=== PATIENT | female | born 1990 | race Caucasian/White ===

== ENCOUNTER 2016-09-29 15:43 | Emergency (ER) | payer MEDICAID ==
[2016-09-29 15:57] VITALS: BP 105/64
--- NOTE | 2016-09-29 16:13 | ER Document Report ---
ED Medical Screen (RME) - General Time seen by provider: 16:11 Mode of Arrival: Ambulatory Information source: Patient TRAVEL OUTSIDE OF THE [place] IN LAST 30 DAYS: No <MARIALUISA COOMBS - Last Filed: 09/29/16 16:11> <KRISTAL GOMES - Last Filed: 09/29/16 19:26> - General Chief Complaint: Abdominal Pain Stated Complaint: ABDOMINAL PAIN Notes: 26-year-old female presents to ED for abdominal pain for 2 weeks with some nausea. Last menstrual period states she has an IUD. States 3 home came back positive, states has had 25 versus I have greeted and performed a rapid initial assessment of this patient. A comprehensive ED assessment and evaluation of the patient, analysis of test results and completion of medical decision making process will be conducted by an additional ED providers. (MARIALUISA COOMBS) - Related Data Allergies/Adverse Reactions: No Known Allergies Allergy (Verified 09/29/16 16:13) Past Medical History Psychiatric Medical History: Reports: Hx Depression - Immunizations Hx Diphtheria, Pertussis, Tetanus Vaccination: Yes - unk <MARIALUISA COOMBS - Last Filed: 09/29/16 16:11> Course - Laboratory Result Diagrams: 09/29/16 16:25 09/29/16 16:25 <KRISTAL GOMES - Last Filed: 09/29/16 19:26> - Vital Signs Vital signs: Temp Pulse Resp BP Pulse Ox 98.2 F 101 H 16 105/64 96 09/29/16 15:57 09/29/16 15:57 09/29/16 15:57 09/29/16 15:57 09/29/16 15:57 (MARIALUISA COOMBS) (KRISTAL GOMES) - Laboratory Laboratory results interpreted by me: 09/29/16 09/29/16 09/29/16 16:25 16:25 16:25 MCH 26.9 L ALT 59 H Ur Leukocyte Esterase LARGE H (KRISTAL GOMES) Doctor's Discharge <MARIALUISA COOMBS - Last Filed: 09/29/16 16:11> <KRISTAL GOMES - Last Filed: 09/29/16 19:26> - Discharge Clinical Impression: Abdominal pain Qualifiers: Abdominal location: right lower quadrant Qualified Code(s): R10.31 - Right lower quadrant pain Condition: Good Disposition: HOME, SELF-CARE Instructions: Abdominal Pain ([facility]) Additional Instructions: Take medication as prescribed. Return to ER symptoms worsen. Prescriptions: Ondansetron [Zofran Odt 4 mg Tablet] 4 mg PO Q4HP PRN #30 tab.rapdis PRN Reason: Dicyclomine HCl [Bentyl 20 mg Tablet] 20 mg PO QID #20 tablet Forms: Return to Work
[2016-09-29 16:41] LABS: ABSOLUTE EOSINOPHILS # (AUTO) 0.2 10^3/uL (0.0-0.6); ABSOLUTE LYMPHOCYTES (AUTO) 1.3 10^3/uL (0.5-4.7); ABSOLUTE MONOCYTES (AUTO) 0.7 10^3/uL (0.1-1.4); ABSOLUTE NEUT (AUTO) 7.3 10^3/uL (1.7-8.2); BASOPHILS % (AUTO) 0.2 % (0-2); EOSINOPHILS % (AUTO) 1.7 % (0-6); HEMATOCRIT 40.6 % (36.0-47.0); HEMOGLOBIN 13.4 g/dL (12.0-15.5); HGB HCT DIFFERENCE -0.4; LYMPHOCYTES % (AUTO) 13.5 % (13-45); MEAN CORPUSCULAR HEMOGLOBIN 26.9 pg (27.0-33.4); MEAN CORPUSCULAR VOLUME 82 fl (80-97); MONOCYTES % (AUTO) 7.4 % (3-13); RED BLOOD COUNT 4.98 10^6/uL (3.72-5.28); RED CELL DISTRIBUTION WIDTH 12.9 % (11.5-14.0); SEGMENTED NEUTROPHILS % (AUTO) 77.2 % (42-78); WHITE BLOOD COUNT 9.4 10^3/uL (4.0-10.5)
[2016-09-29 17:00] LABS: ALANINE AMINOTRANSFERASE 59 U/L (9-52); ALBUMIN 4.3 g/dL (3.5-5.0); ALKALINE PHOSPHATASE 86 U/L (38-126); ANION GAP 12 (5-19); ASPARTATE AMINO TRANSFERASE 31 U/L (14-36); BILIRUBIN,TOTAL 0.8 mg/dL (0.2-1.3); BLOOD UREA NITROGEN 19 mg/dL (7-20); CARBON DIOXIDE 26 mmol/L (22-30); CHLORIDE 104 mmol/L (98-107); CREATININE RESULT 0.86 mg/dL (0.52-1.25); GLUCOSE 89 mg/dL (75-110); POTASSIUM 4.2 mmol/L (3.6-5.0); SODIUM 141.7 mmol/L (137-145); TOTAL PROTEIN 7.6 g/dL (6.3-8.2)
[2016-09-29 17:16] LABS: APPEARANCE,URINE CLOUDY; BILIRUBIN,URINE NEGATIVE (NEGATIVE); GLUCOSE, URINE NEGATIVE (NEGATIVE); KETONES,URINE NEGATIVE (NEGATIVE); LEUKOCYTE ESTERASE,URINE LARGE (NEGATIVE); NITRITE,URINE NEGATIVE (NEGATIVE); PROTEIN,URINE NEGATIVE (NEGATIVE); URINE SPECIFIC GRAVITY 1.012; UROBILINOGEN,URINE NEGATIVE mg/dL (<2.0)
--- NOTE | 2016-09-29 23:42 | ER Document Report ---
ED General - General Chief Complaint: Abdominal Pain Stated Complaint: ABDOMINAL PAIN Mode of Arrival: Ambulatory TRAVEL OUTSIDE OF THE [place] IN LAST 30 DAYS: No - HPI Patient complains to provider of: abdominal pain left lower quadrant Notes: Patient coming in for evaluation of abdominal pain left lower quadrant ongoing for the last 4-5 days. Patient is concerned she may be . Patient states she took Prevacid test on the positive. Patient has a history of an IUD placement approximately one year ago patient states this is a Mirena. Patient states that she has checked her memory and is still has drains in place. Patient denies nausea vomiting fevers chills diarrhea recent travel. Patient denies any recent trauma. - Related Data Allergies/Adverse Reactions: No Known Allergies Allergy (Verified 09/29/16 16:13) Past Medical History - General Information source: Patient - Social History Smoking Status: Current Every Day Smoker Chew tobacco use (# tins/day): No Frequency of alcohol use: None Drug Abuse: None Family History: Reviewed & Not Pertinent Patient has suicidal ideation: No Patient has homicidal ideation: No Renal/ Medical History: Denies: Hx Peritoneal Dialysis Psychiatric Medical History: Reports: Hx Depression - Immunizations Hx Diphtheria, Pertussis, Tetanus Vaccination: Yes - unk Review of Systems - Review of Systems Constitutional: No symptoms reported EENT: No symptoms reported Cardiovascular: No symptoms reported Respiratory: No symptoms reported Gastrointestinal: Abdominal pain - Left lower quadrant Genitourinary: No symptoms reported Female Genitourinary: No symptoms reported Musculoskeletal: No symptoms reported Skin: No symptoms reported Hematologic/Lymphatic: No symptoms reported Neurological/Psychological: No symptoms reported Physical Exam - Vital signs Vitals: Temp Pulse Resp BP Pulse Ox 98.2 F 101 H 16 105/64 96 09/29/16 15:57 09/29/16 15:57 09/29/16 15:57 09/29/16 15:57 09/29/16 15:57 Interpretation: Normal - General General appearance: Appears well, Alert - HEENT Head: Normocephalic, Atraumatic Eyes: Normal Pupils: PERRL - Respiratory Respiratory status: No respiratory distress Chest status: Nontender Breath sounds: Normal Chest palpation: Normal - Cardiovascular Rhythm: Regular Heart sounds: Normal auscultation Murmur: No - Abdominal Inspection: Normal Distension: No distension Bowel sounds: Normal Tenderness: Nontender. No: Tender, McBurney's point, Gayle's sign, Guarding, Rebound Organomegaly: No organomegaly - Back Back: Normal, Nontender - Extremities General upper extremity: Normal inspection, Nontender, Normal color, Normal ROM , Normal temperature General lower extremity: Normal inspection, Nontender, Normal color, Normal ROM , Normal temperature, Normal weight bearing. No: Magan's sign - Neurological Neuro grossly intact: Yes Cognition: Normal Orientation: AAOx4 Chloe Coma Scale Eye Opening: Spontaneous Chloe Coma Scale Verbal: Oriented Silver Plume Coma Scale Motor: Obeys Commands Chloe Coma Scale Total: 15 Speech: Normal Motor strength normal: LUE, RUE, LLE, RLE Sensory: Normal - Psychological Associated symptoms: Normal affect, Normal mood - Skin Skin Temperature: Warm Skin Moisture: Dry Skin Color: Normal Course - Re-evaluation Re-evalutation: 09/29/16 23:41 Lab work shows no signs of critical etiology patient is not . No signs of infection. Patient states she has a history of ectopic in the past and had a surgery for on the left side. Possible etiology could be scar tissue. 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 - Vital Signs Vital signs: Temp Pulse Resp BP Pulse Ox 98.2 F 101 H 16 105/64 96 09/29/16 15:57 09/29/16 15:57 09/29/16 15:57 09/29/16 15:57 09/29/16 15:57 - Laboratory Result Diagrams: 09/29/16 16:25 09/29/16 16:25 Laboratory results interpreted by me: 09/29/16 09/29/16 09/29/16 16:25 16:25 16:25 MCH 26.9 L ALT 59 H Ur Leukocyte Esterase LARGE H Discharge - Discharge Clinical Impression: Abdominal pain Qualifiers: Abdominal location: right lower quadrant Qualified Code(s): R10.31 - Right lower quadrant pain Condition: Good Disposition: HOME, SELF-CARE Instructions: Abdominal Pain ([facility]) Additional Instructions: Take medication as prescribed. Return to ER symptoms worsen. Prescriptions: Ondansetron [Zofran Odt 4 mg Tablet] 4 mg PO Q4HP PRN #30 tab.rapdis PRN Reason: Dicyclomine HCl [Bentyl 20 mg Tablet] 20 mg PO QID #20 tablet Forms: Return to Work
== END 2016-09-29 19:31 | disposition home or self-care (01) ==
LOC: ER 15:43
DX: R10.31 Right lower quadrant pain (principal); R10.32 Left lower quadrant pain; F17.210 Nicotine dependence, cigarettes, uncomplicated
CPT/HCPCS: 36415; 80053; 81001; 84703; 85025; 99284

== ENCOUNTER 2017-04-24 06:24 | Emergency (ER) | payer OTHER ==
--- NOTE | 2017-04-24 07:34 | ER Document Report ---
ED General - General Chief Complaint: Redness of Eye Stated Complaint: POSSIBE EYE IRRITATION Time Seen by Provider: 04/24/17 06:45 Mode of Arrival: Ambulatory Information source: Patient Notes: 27-year-old female presents with complaints of red eye itchy with thick discharge. Patient notes her left eye started yesterday right eye started this morning. Patient does not wear contacts. She rarely uses makeup. Patient denies any known sick contacts TRAVEL OUTSIDE OF THE [place] IN LAST 30 DAYS: No - HPI Onset: Yesterday Onset/Duration: Sudden Quality of pain: No pain Severity: Mild Pain Level: Denies Associated symptoms: None Exacerbated by: Denies Relieved by: Denies Similar symptoms previously: No Recently seen / treated by doctor: No - Related Data Allergies/Adverse Reactions: No Known Allergies Allergy (Verified 04/24/17 06:27) Past Medical History - Social History Smoking Status: Current Every Day Smoker Cigarette use (# per day): Yes Chew tobacco use (# tins/day): No Smoking Education Provided: No Frequency of alcohol use: None Drug Abuse: None Family History: Reviewed & Not Pertinent Renal/ Medical History: Denies: Hx Peritoneal Dialysis Psychiatric Medical History: Reports: Hx Depression - Immunizations Hx Diphtheria, Pertussis, Tetanus Vaccination: Yes - unk Review of Systems - Review of Systems Notes: REVIEW OF SYSTEMS: CONSTITUTIONAL : Denies fever, chills, or sweats. Denies recent illness. EENT: Admits to itching eyes CARDIOVASCULAR: Denies chest pain. Denies palpitations or racing or irregular heart beat. Denies ankle edema. RESPIRATORY: Denies cough, cold, or chest congestion. Denies shortness of breath, difficulty breathing, or wheezing. GASTROINTESTINAL: Denies abdominal pain or distention. Denies nausea, vomiting , or diarrhea. Denies blood in vomitus, stools, or per rectum. Denies black, tarry stools. Denies constipation. GENITOURINARY: Denies difficulty urinating, painful urination, burning, frequency, blood in urine, or discharge. FEMALE GENITOURINARY: Denies vaginal bleeding, heavy or abnormal periods, irregular periods. Denies vaginal discharge or odor. MUSCULOSKELETAL: Denies back or neck pain or stiffness. Denies joint pain or swelling. SKIN: Denies rash, lesions or sores. HEMATOLOGIC : Denies easy bruising or bleeding. LYMPHATIC: Denies swollen, enlarged glands. NEUROLOGICAL: Denies confusion or altered mental status. Denies passing out or loss of consciousness. Denies dizziness or lightheadedness. Denies headache. Denies weakness or paralysis or loss of use of either side. Denies problems with gait or speech. Denies sensory loss, numbness, or tingling. Denies seizures. PSYCHIATRIC: Denies anxiety or stress. Denies depression, suicidal ideation, or homicidal ideation. ALL OTHER SYSTEMS REVIEWED AND NEGATIVE. PHYSICAL EXAMINATION: GENERAL: Well-appearing, well-nourished and in no acute distress. HEAD: Atraumatic, normocephalic. EYES: Pupils are equal round reactive to light extraocular movements are intact left conjunctiva is injected there is no drainage noted right conjunctiva appears normal at this time ENT: Nares patent, oropharynx clear without exudates. Moist mucous membranes. NECK: Normal range of motion, supple without lymphadenopathy LUNGS: Breath sounds clear to auscultation bilaterally and equal. No wheezes rales or rhonchi. HEART: Regular rate and rhythm without murmurs ABDOMEN: Soft, nontender, nondistended abdomen. No guarding, no rebound. No masses appreciated. Female : deferred Musculoskeletal: Normal range of motion, no pitting or edema. No cyanosis. NEUROLOGICAL: Cranial nerves grossly intact. Normal speech, normal gait. Normal sensory, motor exams PSYCH: Normal mood, normal affect. SKIN: Warm, Dry, normal turgor, no rashes or lesions noted. Dictation was performed using [employer] voice recognition software Physical Exam - Vital signs Vitals: Temp Pulse Resp BP Pulse Ox 98.3 F 80 16 104/62 99 04/24/17 06:27 04/24/17 06:27 04/24/17 06:27 04/24/17 06:27 04/24/17 06:27 Course - Re-evaluation Re-evalutation: 04/24/17 07:32 Patient will be started on Polytrim for her conjunctivitis, I discussed allergic versus viral versus bacterial conjunctivitis. After performing a Medical Screening Examination, I estimate there is LOW risk for a RETAINED CORNEAL or LID FOREIGN BODY, DEEP SPACE INFECTION (e.g., ORBITAL CELLULITIS OR ABSCESS), ACUTE GLAUCOMA, PENETRATING GLOBE INJURY, RETINAL DETACHMENT, or MENINGITIS thus I consider the discharge disposition reasonable. I have reevaluated this patient multiple times and no significant life threatening changes are noted. Also, there is no evidence or peritonitis, sepsis , or toxicity. The patient and I have discussed the diagnosis and risks, and we agree with discharging home with outpatient follow-up with the understanding that symptoms and presentations can change. We also discussed returning to the Emergency Department immediately if new or worsening symptoms occur. We have discussed the symptoms which are most concerning (e.g., changing or worsening pain, vision changes, neck stiffness or fever) that necessitate immediate return. - Vital Signs Vital signs: Temp Pulse Resp BP Pulse Ox 98.3 F 80 16 104/62 99 04/24/17 06:27 04/24/17 06:27 04/24/17 06:27 04/24/17 06:27 04/24/17 06:27 Discharge - Discharge Clinical Impression: Conjunctivitis Qualifiers: Conjunctivitis type: acute Acute conjunctivitis type: bacterial Laterality: bilateral Qualified Code(s): H10.33 - Unspecified acute conjunctivitis, bilateral Condition: Stable Disposition: HOME, SELF-CARE Instructions: Conjunctivitis ([facility]) Prescriptions: Polymyxin B Sulf/Trimethoprim [Polytrim Eye Drops] 2 drop OU Q6 10 Days drops Referrals: JAMES ESQUIVEL [Primary Care Provider] - Follow up as needed TRE HOLMAN DO [ACTIVE STAFF] - Follow up in 3-5 days
[2017-04-24 08:12] VITALS: BP 93/66
== END 2017-04-24 08:12 | disposition home or self-care (01) ==
LOC: ER 06:24
DX: H10.33 Unspecified acute conjunctivitis, bilateral (principal); F17.200 Nicotine dependence, unspecified, uncomplicated
CPT/HCPCS: 99282

== ENCOUNTER 2017-06-24 06:24 | Emergency (ER) | payer OTHER ==
[2017-06-24 07:17] LABS: ABSOLUTE EOSINOPHILS # (AUTO) 0.3 10^3/uL (0.0-0.6); ABSOLUTE LYMPHOCYTES (AUTO) 1.7 10^3/uL (0.5-4.7); ABSOLUTE MONOCYTES (AUTO) 0.8 10^3/uL (0.1-1.4); ABSOLUTE NEUT (AUTO) 5.6 10^3/uL (1.7-8.2); BASOPHILS % (AUTO) 0.4 % (0-2); EOSINOPHILS % (AUTO) 3.7 % (0-6); HEMATOCRIT 41.3 % (36.0-47.0); HEMOGLOBIN 14.2 g/dL (12.0-15.5); HGB HCT DIFFERENCE 1.3; LYMPHOCYTES % (AUTO) 20.2 % (13-45); MEAN CORPUSCULAR HGB CONC 34.3 g/dL (32.0-36.0); MEAN CORPUSCULAR VOLUME 82 fl (80-97); MONOCYTES % (AUTO) 9.9 % (3-13); RED BLOOD COUNT 5.06 10^6/uL (3.72-5.28); RED CELL DISTRIBUTION WIDTH 12.7 % (11.5-14.0); SEGMENTED NEUTROPHILS % (AUTO) 65.8 % (42-78); WHITE BLOOD COUNT 8.5 10^3/uL (4.0-10.5)
[2017-06-24 07:35] LABS: ALANINE AMINOTRANSFERASE 41 U/L (9-52); ALBUMIN 4.8 g/dL (3.5-5.0); ALKALINE PHOSPHATASE 63 U/L (38-126); ANION GAP 14 (5-19); ASPARTATE AMINO TRANSFERASE 23 U/L (14-36); BILIRUBIN,DIRECT 0.4 mg/dL (0.0-0.4); BILIRUBIN,TOTAL 0.6 mg/dL (0.2-1.3); BLOOD UREA NITROGEN 18 mg/dL (7-20); CARBON DIOXIDE 27 mmol/L (22-30); CHLORIDE 105 mmol/L (98-107); CREATININE RESULT 0.92 mg/dL (0.52-1.25); GLUCOSE 97 mg/dL (75-110); SODIUM 145.6 mmol/L (137-145); TOTAL PROTEIN 7.4 g/dL (6.3-8.2)
--- NOTE | 2017-06-24 07:54 | ER Document Report ---
ED General - General Chief Complaint: Chest Pain Stated Complaint: CHEST PAIN Time Seen by Provider: 06/24/17 06:36 Mode of Arrival: Ambulatory Information source: Patient Notes: 27 yr old female presents with complaints of midsternal chest pain. Pt denies any fevers or chills, nausea or vomiting. pt notes that she has alot of stress in her life, has alot of sharp pain midsternal. pt admits to sob. TRAVEL OUTSIDE OF THE [place] IN LAST 30 DAYS: No - HPI Onset: Just prior to arrival Onset/Duration: Sudden Quality of pain: Sharp Severity: Mild Pain Level: Denies Associated symptoms: None Exacerbated by: Other Relieved by: Denies Similar symptoms previously: No Recently seen / treated by doctor: No - Related Data Allergies/Adverse Reactions: No Known Allergies Allergy (Verified 04/24/17 06:27) Past Medical History - Social History Smoking Status: Never Smoker Cigarette use (# per day): No Chew tobacco use (# tins/day): No Smoking Education Provided: No Family History: Reviewed & Not Pertinent Patient has suicidal ideation: No Patient has homicidal ideation: No Renal/ Medical History: Denies: Hx Peritoneal Dialysis Psychiatric Medical History: Reports: Hx Depression - Immunizations Hx Diphtheria, Pertussis, Tetanus Vaccination: Yes - unk Review of Systems - Review of Systems Notes: REVIEW OF SYSTEMS: CONSTITUTIONAL : Denies fever, chills, or sweats. Denies recent illness. EENT: Denies eye, ear, throat, or mouth pain or symptoms. Denies nasal or sinus congestion or discharge. Denies throat, tongue, or mouth swelling or difficulty swallowing. CARDIOVASCULAR: admits to chest pain RESPIRATORY: Denies cough, cold, or chest congestion. Denies shortness of breath, difficulty breathing, or wheezing. GASTROINTESTINAL: Denies abdominal pain or distention. Denies nausea, vomiting , or diarrhea. Denies blood in vomitus, stools, or per rectum. Denies black, tarry stools. Denies constipation. GENITOURINARY: Denies difficulty urinating, painful urination, burning, frequency, blood in urine, or discharge. FEMALE GENITOURINARY: Denies vaginal bleeding, heavy or abnormal periods, irregular periods. Denies vaginal discharge or odor. MUSCULOSKELETAL: Denies back or neck pain or stiffness. Denies joint pain or swelling. SKIN: Denies rash, lesions or sores. HEMATOLOGIC : Denies easy bruising or bleeding. LYMPHATIC: Denies swollen, enlarged glands. NEUROLOGICAL: Denies confusion or altered mental status. Denies passing out or loss of consciousness. Denies dizziness or lightheadedness. Denies headache. Denies weakness or paralysis or loss of use of either side. Denies problems with gait or speech. Denies sensory loss, numbness, or tingling. Denies seizures. PSYCHIATRIC: Denies anxiety or stress. Denies depression, suicidal ideation, or homicidal ideation. ALL OTHER SYSTEMS REVIEWED AND NEGATIVE. PHYSICAL EXAMINATION: GENERAL: Well-appearing, well-nourished and in no acute distress. HEAD: Atraumatic, normocephalic. EYES: Pupils equal round and reactive to light, extraocular movements intact, conjunctiva are normal. ENT: Nares patent, oropharynx clear without exudates. Moist mucous membranes. NECK: Normal range of motion, supple without lymphadenopathy LUNGS: Breath sounds clear to auscultation bilaterally and equal. No wheezes rales or rhonchi. HEART: Regular rate and rhythm without murmurs ABDOMEN: Soft, nontender, nondistended abdomen. No guarding, no rebound. No masses appreciated. Female : deferred Musculoskeletal: Normal range of motion, no pitting or edema. No cyanosis. NEUROLOGICAL: Cranial nerves grossly intact. Normal speech, normal gait. Normal sensory, motor exams PSYCH: Normal mood, normal affect. SKIN: Warm, Dry, normal turgor, no rashes or lesions noted. Dictation was performed using [employer] voice recognition software Physical Exam - Vital signs Vitals: Temp Pulse Resp BP Pulse Ox 97.2 F 89 24 H 108/70 99 06/24/17 06:28 06/24/17 06:28 06/24/17 06:28 06/24/17 06:28 06/24/17 06:28 Course - Re-evaluation Re-evalutation: 06/24/17 07:59 Patient believes she has a lot of stress and states she thinks this is stress related, I will treated with some Ativan Toradol, there is no signs of DVT pneumothorax or any cardiac event causing the chest pain 06/24/17 09:12 After performing a Medical Screening Examination, I estimate there is LOW risk for RUPTURED ESOPHAGUS, PNEUMOTHORAX, PULMONARY EMBOLISM, ACUTE CORONARY SYNDROME, OR THORACIC AORTIC DISSECTION, thus I consider the discharge disposition reasonable. I have reevaluated this patient multiple times and no significant life threatening changes are noted. The patient and I have discussed the diagnosis and risks, and we agree with discharging home with close follow-up. We also discussed returning to the Emergency Department immediately if new or worsening symptoms occur. We have discussed the symptoms which are most concerning (e.g., bloody sputum, worsening pain or shortness of breath) that necessitate immediate return. - Vital Signs Vital signs: Temp Pulse Resp BP Pulse Ox 97.2 F 89 24 H 108/70 99 06/24/17 06:28 06/24/17 06:28 06/24/17 06:28 06/24/17 06:28 06/24/17 06:28 - Laboratory Result Diagrams: 06/24/17 07:03 06/24/17 07:03 Laboratory results interpreted by me: 06/24/17 07:03 Sodium 145.6 H - Diagnostic Test Radiology reviewed: Image reviewed, Reports reviewed - EKG Interpretation by Me EKG shows normal: Sinus rhythm, Gibson, Intervals, QRS Complexes Discharge - Discharge Clinical Impression: Anxiety Chest pain Qualifiers: Chest pain type: unspecified Qualified Code(s): R07.9 - Chest pain, unspecified Condition: Stable Disposition: HOME, SELF-CARE Instructions: Chest Pain of Unclear Cause ([facility]) Prescriptions: Lorazepam [Ativan 1 mg Tablet] 1 mg PO Q4 PRN #10 tab PRN Reason:
--- NOTE | 2017-06-24 07:56 | RADIOLOGY REPORT (SQ) ---
EXAM DESCRIPTION: CHEST PA/LAT COMPLETED DATE/TIME: 06/24/2017 7:47 am REASON FOR STUDY: chest pain COMPARISON: None. EXAM PARAMETERS: NUMBER OF VIEWS: two views TECHNIQUE: Digital Frontal and Lateral radiographic views of the chest acquired. RADIATION DOSE: NA LIMITATIONS: none FINDINGS: LUNGS AND PLEURA: No consolidation, pneumothorax or pleural effusion. MEDIASTINUM AND HILAR STRUCTURES: No masses or contour abnormalities. HEART AND VASCULAR STRUCTURES: Heart normal size. No evidence for failure. BONES: No acute findings. HARDWARE: None in the chest. IMPRESSION: No acute radiographic finding in the chest. TECHNICAL DOCUMENTATION: JOB ID: [id number] 2010 [employer]- All Rights Reserved
[2017-06-24] MEDS ORDERED: LORAZEPAM 1 MG TABLET PO ONE (07:59)
[2017-06-24] MEDS ORDERED: KETOROLAC TROMETHAMINE 60 MG/2 ML SDV IM ONE (07:59)
[2017-06-24 09:29] VITALS: BP 93/72
--- NOTE | 2017-06-24 20:18 | EKG REPORT ---
SEVERITY:- BORDERLINE ECG - SINUS RHYTHM BORDERLINE T ABNORMALITIES, DIFFUSE LEADS : Confirmed by: Carmella Jeffries MD 24-Jun-2017 20:16:55
== END 2017-06-24 09:28 | disposition home or self-care (01) ==
LOC: ER 06:24
DX: F41.9 Anxiety disorder, unspecified (principal); R07.9 Chest pain, unspecified
CPT/HCPCS: 93005; 99285; 96372; 36415; 85025; 80053; 85379; 71020; 93010; J1885

== ENCOUNTER 2018-01-24 17:31 | Emergency (ER) | payer OTHER ==
[2018-01-24 17:37] VITALS: BP 110/60
--- NOTE | 2018-01-24 19:06 | ER Document Report ---
ED Medical Screen (RME) - General Chief Complaint: Abdominal Pain Stated Complaint: ABDOMINAL PAIN Time Seen by Provider: 01/24/18 18:56 Notes: RAPID MEDICAL EVALUATION DISCLOSURE I have seen this patient as part of a Rapid Medical Evaluation and, if applicable, placed any initially appropriate orders. The patient will be seen and fully evaluated, including a full history and physical exam, by a provider ( in Main ED or Fast Track) when a room becomes available. 27-year-old female PMH "gallbladder sludge" here with complaints over the past 2 weeks of right upper quadrant abdominal pain. She first noticed it 2 weeks ago after she ate some Japanese fries and the pain ensued approximately 10 minutes later. Since then the pain has progressively worsened and now she is having the symptoms even with nongreasy foods such as salads. EXAM Mild RUQ TTP No peritoneal signs TRAVEL OUTSIDE OF THE [place] IN LAST 30 DAYS: No - Related Data Allergies/Adverse Reactions: No Known Allergies Allergy (Verified 01/24/18 18:54) Past Medical History - Social History Chew tobacco use (# tins/day): No Frequency of alcohol use: None Drug Abuse: None Renal/ Medical History: Denies: Hx Peritoneal Dialysis Psychiatric Medical History: Reports: Hx Depression - Immunizations Hx Diphtheria, Pertussis, Tetanus Vaccination: Yes - unk Physical Exam - Vital signs Vitals: Temp Pulse Resp BP Pulse Ox 99.4 F 101 H 14 110/60 98 01/24/18 17:36 01/24/18 17:36 01/24/18 17:36 01/24/18 17:36 01/24/18 17:36 Course - Vital Signs Vital signs: Temp Pulse Resp BP Pulse Ox 99.4 F 101 H 14 110/60 98 01/24/18 17:36 01/24/18 17:36 01/24/18 17:36 01/24/18 17:36 01/24/18 17:36
== END 2018-01-24 19:48 | disposition left against medical advice (07) ==
LOC: ER 17:31
DX: R10.11 Right upper quadrant pain (principal); Z87.19 Personal history of other diseases of the digestive system; Z53.20 Procedure and treatment not carried out because of patient's decision for unspecified reasons
CPT/HCPCS: 99281

== ENCOUNTER 2018-11-29 21:11 | Emergency (ER) | payer OTHER ==
[2018-11-29] MEDS ORDERED: RINGERS SOLUTION,LACTATED 1,000 ML IV ONE (21:31)
[2018-11-29] MEDS ORDERED: KETOROLAC TROMETHAMINE INJ/PF 30 MG/1 ML SDV IV ONE (21:31)
[2018-11-29] MEDS ORDERED: ONDANSETRON HCL INJ/PF 4 MG/2 ML SDV IV ONE (21:32)
[2018-11-29 22:00] LABS: APPEARANCE,URINE SLIGHTLY-CLOUDY; BILIRUBIN,URINE NEGATIVE (NEGATIVE); COLOR,URINE STRAW; GLUCOSE, URINE NEGATIVE (NEGATIVE); KETONES,URINE NEGATIVE (NEGATIVE); LEUKOCYTE ESTERASE,URINE NEGATIVE (NEGATIVE); NITRITE,URINE NEGATIVE (NEGATIVE); PROTEIN,URINE NEGATIVE (NEGATIVE); URINE SPECIFIC GRAVITY 1.011; UROBILINOGEN,URINE NEGATIVE mg/dL (<2.0)
[2018-11-29 22:19] LABS: ABSOLUTE EOSINOPHILS # (AUTO) 0.2 10^3/uL (0.0-0.6); ABSOLUTE LYMPHOCYTES (AUTO) 2.6 10^3/uL (0.5-4.7); ABSOLUTE MONOCYTES (AUTO) 0.6 10^3/uL (0.1-1.4); ABSOLUTE NEUT (AUTO) 5.8 10^3/uL (1.7-8.2); BASOPHILS % (AUTO) 0.4 % (0-2); EOSINOPHILS % (AUTO) 1.9 % (0-6); HEMATOCRIT 38.2 % (36.0-47.0); HEMOGLOBIN 13.2 g/dL (12.0-15.5); LYMPHOCYTES % (AUTO) 28.5 % (13-45); MEAN CORPUSCULAR HEMOGLOBIN 28.5 pg (27.0-33.4); MEAN CORPUSCULAR HGB CONC 34.4 g/dL (32.0-36.0); MEAN CORPUSCULAR VOLUME 83 fl (80-97); MONOCYTES % (AUTO) 6.2 % (3-13); PLATELET COUNT 307 10^3/uL (150-450); RED BLOOD COUNT 4.61 10^6/uL (3.72-5.28); RED CELL DISTRIBUTION WIDTH 13.1 % (11.5-14.0); TOTAL CELLS COUNTED % (AUTO) 100 %; WHITE BLOOD COUNT 9.1 10^3/uL (4.0-10.5)
[2018-11-29 22:35] LABS: ALANINE AMINOTRANSFERASE 32 U/L (9-52); ALBUMIN 4.6 g/dL (3.5-5.0); ALKALINE PHOSPHATASE 51 U/L (38-126); ANION GAP 8 (5-19); ASPARTATE AMINO TRANSFERASE 24 U/L (14-36); BILIRUBIN,DIRECT 0.1 mg/dL (0.0-0.4); BILIRUBIN,TOTAL 0.4 mg/dL (0.2-1.3); BLOOD UREA NITROGEN 14 mg/dL (7-20); CALCIUM 9.8 mg/dL (8.4-10.2); CARBON DIOXIDE 29 mmol/L (22-30); CHLORIDE 104 mmol/L (98-107); GLUCOSE 83 mg/dL (75-110); LIPASE 90.7 U/L (23-300); SODIUM 140.6 mmol/L (137-145); TOTAL PROTEIN 7.7 g/dL (6.3-8.2)
--- NOTE | 2018-11-29 23:03 | RADIOLOGY REPORT (SQ) ---
US ABDOMEN DOPPLER LIMITED HISTORY: Right upper quadrant pain. COMPARISON: None. TECHNIQUE: Grayscale and color Doppler imaging of the right upper quadrant was performed. FINDINGS: The liver has normal echotexture without focal lesion identified. The main portal vein has normal hepatopetal flow. No shadowing gallstones are seen. No pericholecystic fluid or gallbladder wall thickening. The common bile duct is normal caliber. The pancreas is unremarkable. Right kidney measures 11.4 cm in length. There is a mildly dilated right renal pelvis, nonspecific. The visualized portions of the IVC and aorta are patent. IMPRESSION: No evidence of gallstones or acute cholecystitis.
--- NOTE | 2018-11-29 23:21 | ER Document Report ---
ED General - General Chief Complaint: Abdominal Pain Stated Complaint: ABDOMIAL PAIN Time Seen by Provider: 11/29/18 21:31 Notes: Patient is otherwise healthy 28-year-old female presents to the emergency department for right upper quadrant pain. States her pain has been intermittent for a while now but the pain had increased this evening which is why she presents to the emergency room. Patient is denying any nausea, vomiting, diarrhea, fever, dysuria, vaginal discharge. Past medical history: None Medications: None Allergies: None Last menstrual period unknown Patient states she has a family history of "gallbladder issues." TRAVEL OUTSIDE OF THE [place] IN LAST 30 DAYS: No - Related Data Allergies/Adverse Reactions: No Known Allergies Allergy (Verified 01/24/18 18:54) Past Medical History - General Information source: Patient - Social History Smoking Status: Current Every Day Smoker Family History: Reviewed & Not Pertinent Patient has suicidal ideation: No Patient has homicidal ideation: No Renal/ Medical History: Denies: Hx Peritoneal Dialysis Psychiatric Medical History: Reports: Hx Depression - Immunizations Hx Diphtheria, Pertussis, Tetanus Vaccination: Yes - unk Review of Systems - Review of Systems Constitutional: No symptoms reported EENT: No symptoms reported Cardiovascular: No symptoms reported Respiratory: No symptoms reported Gastrointestinal: See HPI Genitourinary: See HPI Female Genitourinary: See HPI Musculoskeletal: No symptoms reported Skin: No symptoms reported Hematologic/Lymphatic: No symptoms reported Neurological/Psychological: No symptoms reported Physical Exam - Vital signs Vitals: Temp Pulse Resp BP Pulse Ox 98 F 93 18 109/66 99 11/29/18 21:14 11/29/18 21:14 11/29/18 21:14 11/29/18 21:14 11/29/18 21:14 - Notes Notes: GENERAL: Alert, interacts well. No acute distress. HEAD: Normocephalic, atraumatic. EYES: Pupils equal, round, and reactive to light. Extraocular movements intact. ENT: Oral mucosa moist, tongue midline. NECK: Full range of motion. Supple. Trachea midline. LUNGS: Clear to auscultation bilaterally, no wheezes, rales, or rhonchi. No respiratory distress. HEART: Regular rate and rhythm. No murmur ABDOMEN: Soft, Non-distended. Bowel sounds present in all 4 quadrants. No McBurney's point tenderness, no Gayle sign noted. EXTREMITIES: Moves all 4 extremities spontaneously. No edema, normal radial and dorsalis pedis pulses bilaterally. No cyanosis. BACK: no cervical, thoracic, lumbar midline tenderness. No saddle anesthesia, normal distal neurovascular exam. No CVA tenderness noted bilaterally. NEUROLOGICAL: Alert and oriented x3. Normal speech. cranial nerves II through XII grossly intact PSYCH: Normal affect, normal mood. SKIN: Warm, dry, normal turgor. No rashes or lesions noted. Course - Re-evaluation Re-evalutation: 11/29/18 23:19 Patient initially presented to the emergency department with right upper quadrant abdominal pain. Labs, pain management, fluid resuscitation were ordered. Patient is currently stating labs show no signs of leukocytosis, no signs of she no longer has the right upper quadrant abdominal pain anymore. Per nursing staff patient is refusing any of the treatments in the emergency room. Patients anemia, no signs of electrolyte abnormalities, no signs of urinary tract infection, hCG negative. Patient's ultrasound reveals no signs of cholelithiasis or cholecystitis. Patient stable for discharge. - Vital Signs Vital signs: Temp Pulse Resp BP Pulse Ox 98 F 93 18 109/66 99 11/29/18 21:14 11/29/18 21:14 11/29/18 21:14 11/29/18 21:14 11/29/18 21:14 - Laboratory Result Diagrams: 11/29/18 22:03 11/29/18 22:03 Laboratory results interpreted by me: 11/29/18 21:47 Urine Ascorbic Acid 40 H Discharge - Discharge Clinical Impression: Right upper quadrant abdominal pain Condition: Stable Disposition: HOME, SELF-CARE Instructions: Abdominal Pain ([facility]) Additional Instructions: Is been seen and treated in the emergency department for right upper abdominal pain. Your labs revealed no signs of abnormalities on your ultrasound shows no signs of infection to your gallbladder. Please make sure you follow-up with your primary care provider in the next 24 to 48 hours or return to the emergency room for any other concerning symptoms. Forms: Return to Work
[2018-11-30] VITALS: BP 129/86
== END 2018-11-30 | disposition home or self-care (01) ==
LOC: ER 21:11
DX: R10.11 Right upper quadrant pain (principal); F17.200 Nicotine dependence, unspecified, uncomplicated
CPT/HCPCS: 36415; 76705; 80053; 81001; 81025; 83690; 85025; 87086; 93976; 99284

== ENCOUNTER 2018-12-13 01:35 | Emergency (ER) | payer OTHER ==
[2018-12-13] MEDS ORDERED: ACETAMINOPHEN 325 MG TABLET PO ONE (02:44)
[2018-12-13] MEDS ORDERED: NORMAL SALINE 1000 ML 1,000 ML IV ONE (02:45)
--- NOTE | 2018-12-13 03:01 | ER Document Report ---
Addendum entered and electronically signed by LEON MENG PA 12/13/18 07:48: Course - Re-evaluation Re-evalutation: Initially patient with borderline tachycardia on vital signs but not on exam, borderline blood pressure. Borderline temperature at 100.3. However lungs are clear, she is in no distress. No tachypnea or hypoxia. Patient is actually quite well-appearing. After IV fluids, Tylenol, vital signs normalized. Chest x-ray unremarkable. CBC, chemistry unremarkable. Urinalysis indicates infection. Patient has no flank pain, vomiting, or abdominal pain. Cultures of blood and urine pending. Patient was evaluated at bedside by Dr. Shannon. Discussed with patient. Clinically I suspect underlying pneumonia more than pyelonephritis, but urine does appear infected. Patient will be covered for both using doxycycline as a result. Provided with work release. After an extended period of time on monitoring vital signs remained normal. Discussed follow up and return precautions. Patient states understanding and agreement with plan. - Vital Signs Vital signs: Temp Pulse Resp BP Pulse Ox 98.8 F 116 H 23 H 106/62 98 12/13/18 04:29 12/13/18 01:42 12/13/18 04:29 12/13/18 04:29 12/13/18 04:29 - Laboratory Result Diagrams: 12/13/18 02:58 12/13/18 02:58 Laboratory results interpreted by me: 12/13/18 12/13/18 02:58 02:58 Calcium 10.3 H Urine Blood SMALL H Ur Leukocyte Esterase LARGE H Addendum entered and electronically signed by LEON MENG PA 12/13/18 07:43: Physical Exam - Vital signs Vitals: Temp Pulse Resp BP Pulse Ox 100.3 F 116 H 23 H 98/56 L 99 12/13/18 01:42 12/13/18 01:42 12/13/18 01:42 12/13/18 01:42 12/13/18 01:42 - Notes Notes: GENERAL: Alert, interacts well. No acute distress. HEAD: Normocephalic, atraumatic. EYES: Pupils equal, round, and reactive to light. Extraocular movements intact. ENT: Oral mucosa moist, tongue midline. Oropharynx unremarkable. Airway patent. Minimal nasal congestion, no nasal septal hematoma, TM's intact. NECK: Full range of motion. Supple. Trachea midline. LUNGS: Clear to auscultation bilaterally, no wheezes, rales, or rhonchi. No respiratory distress. Occasional mild cough. HEART: Regular rate and rhythm. No murmur ABDOMEN: Soft, non-tender. Non-distended. Bowel sounds present in all 4 quadrants. GENITOURINARY: Deferred EXTREMITIES: Moves all 4 extremities spontaneously. No edema, normal radial and dorsalis pedis pulses bilaterally. No cyanosis. BACK: no cervical, thoracic, lumbar midline tenderness. No saddle anesthesia, normal distal neurovascular exam. NEUROLOGICAL: Alert and oriented x3. Normal speech. [cranial nerves II through XII grossly intact]. PSYCH: Normal affect, normal mood. SKIN: Warm, dry, normal turgor. No rashes or lesions noted. Addendum entered and electronically signed by LEON MENG PA 12/13/18 07:43: Review of Systems - Review of Systems Constitutional: See HPI EENT: See HPI Cardiovascular: No symptoms reported Respiratory: See HPI Gastrointestinal: No symptoms reported Genitourinary: No symptoms reported Female Genitourinary: No symptoms reported Musculoskeletal: No symptoms reported Skin: No symptoms reported Hematologic/Lymphatic: No symptoms reported Neurological/Psychological: No symptoms reported Original Note: ED General <UMM SHANNON - Last Filed: 12/13/18 03:18> - General TRAVEL OUTSIDE OF THE [place] IN LAST 30 DAYS: No <LENO MENG - Last Filed: 12/13/18 04:56> - General Chief Complaint: Flu Symptoms Stated Complaint: COLD SYMPTOMS Time Seen by Provider: 12/13/18 02:37 Notes: Patient is a 28-year-old female that comes to the emergency department for chief complaint of cough, body aches, congestion, fevers. She states it hurts in her chest when she coughs. She states that she had viral symptoms for about 1 week, recovered from these, felt much better yesterday, then felt much worse today. She denies vomiting, abdominal pain, flank pain, dysuria, headache. She smokes. She reports a history of bronchitis, denies history of asthma, denies any daily medications. She did have the influenza vaccine. LMP within the past month. (LEON MENG) - Related Data Allergies/Adverse Reactions: No Known Allergies Allergy (Verified 12/13/18 03:22) Past Medical History - Social History Smoking Status: Current Every Day Smoker Frequency of alcohol use: None Drug Abuse: None Family History: Reviewed & Not Pertinent Patient has suicidal ideation: No Patient has homicidal ideation: No Renal/ Medical History: Denies: Hx Peritoneal Dialysis Psychiatric Medical History: Reports: Hx Depression Past Surgical History: Reports: Hx Gynecologic Surgery - ectopic - Immunizations Hx Diphtheria, Pertussis, Tetanus Vaccination: Yes - unk <LEON MENG - Last Filed: 12/13/18 04:56> - Vital signs Vitals: Temp Pulse Resp BP Pulse Ox 100.3 F 116 H 23 H 98/56 L 99 12/13/18 01:42 12/13/18 01:42 12/13/18 01:42 12/13/18 01:42 12/13/18 01:42 Course - Laboratory Result Diagrams: 12/13/18 02:58 12/13/18 02:58 <UMM SHANNON - Last Filed: 12/13/18 03:18> - Laboratory Result Diagrams: 12/13/18 02:58 12/13/18 02:58 <LEON MENG - Last Filed: 12/13/18 04:56> - Re-evaluation Re-evalutation: 12/13/18 03:19 Patient seen and evaluated by myself. She states she is feeling better than when she first arrived in the emergency room. She has coarse lung sounds which clear with coughing. She will be placed on telemetry monitoring. Agree with current plan of care. (UMM SHANNON) - Vital Signs Vital signs: Temp Pulse Resp BP Pulse Ox 98.8 F 116 H 23 H 106/62 98 12/13/18 04:29 12/13/18 01:42 12/13/18 04:29 12/13/18 04:29 12/13/18 04:29 - Laboratory Laboratory results interpreted by me: 12/13/18 12/13/18 02:58 02:58 Calcium 10.3 H Urine Blood SMALL H Ur Leukocyte Esterase LARGE H Discharge <UMM SHANNON - Last Filed: 12/13/18 03:18> <LEON MENG - Last Filed: 12/13/18 04:56> - Discharge Clinical Impression: Cough Fever Qualifiers: Fever type: unspecified Qualified Code(s): R50.9 - Fever, unspecified Condition: Stable Disposition: HOME, SELF-CARE Additional Instructions: Your workup shows urinary tract infection. There is no pneumonia seen on chest x-ray, however based on your evaluation I calles spect that you have an underlying developing pneumonia. Take doxycycline as prescribed for both. Take Tessalon as needed for cough. Rest and drink plenty fluids. Stop smoking. Follow-up with primary care. Return if you worsen including spiking fevers, difficulty breathing, vomiting, or any other concerning or worsening symptoms. Prescriptions: Benzonatate [Tessalon Perle 100 mg Capsule] 100 mg PO Q8HP PRN #20 cap PRN Reason: RX: Doxycycline Hyclate 100 mg PO BID #14 capsule Forms: Smoking Cessation Education, Return to Work
[2018-12-13 03:11] LABS: ABSOLUTE EOSINOPHILS # (AUTO) 0.1 10^3/uL (0.0-0.6); ABSOLUTE LYMPHOCYTES (AUTO) 1.6 10^3/uL (0.5-4.7); ABSOLUTE MONOCYTES (AUTO) 0.6 10^3/uL (0.1-1.4); ABSOLUTE NEUT (AUTO) 5.9 10^3/uL (1.7-8.2); BASOPHILS % (AUTO) 0.6 % (0-2); EOSINOPHILS % (AUTO) 0.9 % (0-6); HEMATOCRIT 39.2 % (36.0-47.0); HEMOGLOBIN 13.5 g/dL (12.0-15.5); LYMPHOCYTES % (AUTO) 19.5 % (13-45); MEAN CORPUSCULAR HEMOGLOBIN 28.5 pg (27.0-33.4); MEAN CORPUSCULAR HGB CONC 34.5 g/dL (32.0-36.0); MEAN CORPUSCULAR VOLUME 83 fl (80-97); MONOCYTES % (AUTO) 7.8 % (3-13); PLATELET COUNT 240 10^3/uL (150-450); RED BLOOD COUNT 4.74 10^6/uL (3.72-5.28); RED CELL DISTRIBUTION WIDTH 12.5 % (11.5-14.0); SEGMENTED NEUTROPHILS % (AUTO) 71.2 % (42-78); TOTAL CELLS COUNTED % (AUTO) 100 %; WHITE BLOOD COUNT 8.3 10^3/uL (4.0-10.5)
[2018-12-13 03:20] LABS: APPEARANCE,URINE SLIGHTLY-CLOUDY; BILIRUBIN,URINE NEGATIVE (NEGATIVE); COLOR,URINE YELLOW; GLUCOSE, URINE NEGATIVE (NEGATIVE); KETONES,URINE NEGATIVE (NEGATIVE); LEUKOCYTE ESTERASE,URINE LARGE (NEGATIVE); NITRITE,URINE NEGATIVE (NEGATIVE); PROTEIN,URINE NEGATIVE (NEGATIVE); URINE SPECIFIC GRAVITY 1.008; UROBILINOGEN,URINE NEGATIVE mg/dL (<2.0)
[2018-12-13 03:32] LABS: ANION GAP 11 (5-19); BLOOD UREA NITROGEN 11 mg/dL (7-20); CALCIUM 10.3 mg/dL (8.4-10.2); CARBON DIOXIDE 25 mmol/L (22-30); CHLORIDE 104 mmol/L (98-107); GLUCOSE 103 mg/dL (75-110); POTASSIUM 3.6 mmol/L (3.6-5.0)
--- NOTE | 2018-12-13 04:18 | RADIOLOGY REPORT (SQ) ---
CLINICAL HISTORY: fever, cough COMPARISON: None. TECHNIQUE: XR CHEST 2 VIEWS 12/13/2018 2:48 AM CDT FINDINGS: Cardiac silhouette is normal in size. Lungs are clear without consolidation, atelectasis, mass or edema. There is no pleural effusion. There is no pneumothorax. There are no acute osseous findings. IMPRESSION: Clear lungs.
[2018-12-13 04:30] VITALS: BP 106/62
== END 2018-12-13 05:17 | disposition home or self-care (01) ==
LOC: ER 01:35
DX: R05 Cough (principal); R50.9 Fever, unspecified; M79.10 Myalgia, unspecified site; F17.200 Nicotine dependence, unspecified, uncomplicated
CPT/HCPCS: 99283; 96360; 36415; 87040; 87086; 85025; 81025; 80048; 81001; 71046; J7030

== ENCOUNTER 2019-01-16 20:17 | Emergency (ER) | payer OTHER ==
[2019-01-16 20:48] VITALS: BP 110/66
== END 2019-01-16 23:00 | disposition left against medical advice (07) ==
LOC: ER 20:17
DX: Z53.21 Procedure and treatment not carried out due to patient leaving prior to being seen by health care provider (principal)